=== PATIENT | male | born 1995 | race African-American/Black ===

== ENCOUNTER 2022-11-17 00:46 | Emergency (ER) | payer BC, OTHER ==
[2022-11-17] MEDS ORDERED: Ibuprofen 800 MG TAB ONE (02:47)
== END 2022-11-17 02:37 | disposition home or self-care (01) ==
LOC: CSHERS 00:46
DX: S52.022A Displaced fracture of olecranon process without intraarticular extension of left ulna, initial encounter for closed fracture (principal); W22.01XA Walked into wall, initial encounter
CPT/HCPCS: 29105; 93005

== ENCOUNTER 2025-05-29 20:17 | Emergency (ER) | payer BC, SELFPAY ==
[2025-05-29] MEDS ORDERED: Ketorolac Tromethamine 30 MG (1 mL) VIAL ONE (21:08)
[2025-05-29] MEDS ORDERED: Dexamethasone 10 MG/ML VIAL ONE (21:08)
== END 2025-05-29 21:53 | disposition home or self-care (01) ==
LOC: CSHERS 20:17
DX: M10.9 Gout, unspecified (principal)
CPT/HCPCS: 96372; 99283; J1100; J1885